=== PATIENT | female | born 2005 | race Caucasian/White ===

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

== ENCOUNTER 2023-02-20 13:46 | Emergency (ER) | payer SELFPAY ==
[2023-02-20 13:47] VITALS: BP 107/75; PULSE 74; RESP 14; TEMP 36.8; O2SAT 100; BMI 44.1
--- NOTE | 2023-02-20 15:17 | RAD_ITS ---
STUDY: X-RAY - LEFT WRIST REASON FOR EXAM: Female, 17 years old. Continued wrist pain following a recent fall. TECHNIQUE: 3 view(s) of the wrist were obtained. COMPARISON: None. FINDINGS: Normal visualized distal radius and ulna. Normal radiocarpal articulation. Normal distal radioulnar articulation. Normal carpal bones. Normal carpal articulations. Normal carpometacarpal articulation of the thumb. Normal second through fifth carpometacarpal articulations. Normal visualized metacarpal bones. The soft tissue structures are unremarkable. RAD/Wrist min 3 Views IMPRESSION: Normal x-ray examination of the wrist. Electronically Signed: Ronal Juarez MD at 15:27 EST ,
--- NOTE | 2023-02-20 16:14 | EDS_ITS ---
HPI History of Present Illness Chief Complaint: Upper Extremity Injury Informant: patient Narrative Narrative: 17-year-old female presenting to the emergency room with a chief complaint of left wrist pain. Patient states that a week ago she got her left wrist caught in a bathroom door that was being closed. She states the swelling has gone down but it skip tender. [facility] Medical History Abnormal glucose affecting Anemia Anxiety Depression Disorder of thyroid Echogenic bowel of fetus Migraines Home Medications ondansetron 8 mg disintegrating tablet 8 mg PO Q8H 06/17/21 [History Last Taken Unknown] promethazine 25 mg tablet 25 mg PO TID PRN 06/17/21 [History Last Taken Unknown] hydrocodone-acetaminophen 5-325mg 5mg-325mg 1 tab PO Q4H PRN PRN Pain 2 days #10 TABLETS 10/01/21 [Rx Last Taken Unknown] amoxicillin 500 mg capsule 500 mg PO Q8H 7 days #21 caps 11/27/21 [Rx Last Taken Unknown] Allergy/AdvReac Type Severity Reaction Status Date / Time No Known Allergies Allergy Verified 02/20/23 13:47 Family History Mother Diabetes Grandfather Cancer Lung Surgical History H/O oral surgery Social History Smoking Status: Never smoker alcohol intake: never substance use type: does not use caffeine: No what type of physical activity do you participate in: none seatbelt use: always additional social history: Student at [employer] works at [employer] ED Constitutional Constitutional ED: Denies chills, fever(s) or weight loss Eyes Eyes: Denies change in vision or diplopia ENT ENT ED: Denies ear pain, rhinorrhea or sore throat Cardiovascular Cardiovascular: Denies chest pain, orthopnea, palpitations or racing heartbeat Respiratory/Chest Respiratory/Chest: Denies cough, dyspnea or orthopnea Gastrointestinal Gastrointestinal: Denies abdominal pain, diarrhea, nausea or vomiting Genitourinary Genitourinary ED: Denies dysuria, hematuria or urinary frequency Musculoskeletal Musculoskeletal: Reports other Details: Left medial wrist pain ; Denies arthralgias or myalgias Integumentary Denies abscess or rash Neurologic Neurologic: Denies headache(s) or weakness Psychiatric Psychiatric: Denies anxiety, depression, suicidal ideation or suicidal thoughts Endocrine Endocrinology: Denies polydipsia, polyphagia or polyuria Allergic/Immunologic Allergic/Immunologic ED: Denies mouth swelling, tongue swelling or urticaria EXAM Physical Exam Const Vital Signs: 02/20/23 13:47 Temperature 98.2 F Temperature Source Temporal Pulse Rate 74 Respiratory Rate 14 Blood Pressure 107/75 Blood Pressure Mean 85 Pulse Ox 100 Oxygen Delivery Method Room Air Positive well nourished and well developed General Appearance ED: well developed HEENT Reports normocephalic, head/scalp atraumatic and moist mucous membranes Eyes PERRL and EOMs intact bilaterally Neck no lymphadenopathy, supple and no JVD Resp normal respiratory effort and clear to auscultation bilaterally Cardio regular rate, regular rhythm and no murmurs GI normal to inspection, nondistended, normoactive bowel sounds and non-tender Palpation: soft Back/Spine no CVA tenderness and normal ROM Extremity Extremity Narrative: Left wrist demonstrates no deformity or significant swelling or ecchymosis. Tender to palpation over the distal medial wrist and ulnar styloid. Neurovascular intact. General Extremety ED: Negative for edema General Extremity: Negative for edema Neuro oriented x3 and CN's II-XII intact bilaterally Sensorium / Orientation: alert Motor Exam: strength 5/5 throughout Psych mental status grossly normal Mood & Affect: Negative for depressed or tearful Skin no rashes or lesions noted and no wounds MDM MDM MDM Narrative Medical decision making narrative: My independent interpretation of the three-view wrist x-rays that were ordered through nursing protocol are negative for fracture. Radiology concurs. Clinically I suspect that this is a bone bruise. Conservative treatment is indicated at this time. Discharge Plan Triage Chief Complaint: Upper Extremity Injury ED Provider: Thai Green Dx/Rx/DC Orders Prescriptions: No Action promethazine 25 mg tablet 25 mg PO TID PRN ondansetron 8 mg tablet,disintegrating 8 mg PO Q8H hydrocodone-acetaminophen [hydrocodone-acetaminophen] 5-325 mg tablet 1 tab PO Q4H PRN PRN (Reason: Pain) 2 Days Qty: 10 0RF amoxicillin 500 mg capsule 500 mg PO Q8H 7 Days Qty: 21 0RF Primary Care Provider: Eliz Schmitt Referrals: Eliz Schmitt DO [Primary Care Provider] -
== END 2023-02-20 16:30 | disposition home or self-care (01) ==
PROVIDERS: Emergency Provider Emergency Medicine; Visit Provider Emergency Medicine
DX: S69.92XA Unspecified injury of left wrist, hand and finger(s), initial encounter (principal); W23.0XXA Caught, crushed, jammed, or pinched between moving objects, initial encounter
CPT/HCPCS: 73110; 99282